=== PATIENT | female | born 1980 | race Caucasian/White ===

== ENCOUNTER 2024-09-25 10:36 | Inpatient (IN) | payer OTHER, SELFPAY ==
[2024-09-23 19:08] VITALS: BP 141/84
--- NOTE | 2024-09-23 19:41 | ED.GENMED ---
History of Present Illness
General
Chief Complaint: Chest Pain
Source: patient
Exam Limitations: none
Time Seen by Provider: 09/23/24 19:28
Nursing documentation reviewed up to this point in time: agreed with
History of Present Illness
History of Present Illness:
43 yo male presents to the emergency department c/o epigastric and chest pain that began at about 6:30 PM.
Past History
Past History
ED Past Medical History: Other (Migraines, heart murmur)
ED Past Surgical History: Other ([place] teeth, breast lumpectomy)
Social History
Tobacco: Non-smoker
Alcohol: Occasional
Drug: None
Personal:
Living: with family
Review of Systems
Review of Systems
Allergies reviewed?: Yes
All Other Systems: Not applicable
Constitutional: Reports no symptoms
EENT: Reports no symptoms
Respiratory: Reports trouble breathing
Cardiac: Reports chest pain
ABD/GI: Reports abdominal pain and nausea
: Reports no symptoms
Musculoskeletal: Reports no symptoms
Skin: Reports no symptoms
Neurological: Reports no symptoms
Endocrine: Reports no symptoms
Hematologic/Lymphatic: Reports no symptoms
Psychiatric: Reports no symptoms
Phy Exam
Physical Exam
Physical Exam:
Physical Exam
General: no apparent distress, not acutely ill
Neck: supple. no meningeal signs. normal posterior pharynx
Heart: s1/s2 regular rate and rhythm, no murmur. equal radial
pulses.
HEENT: Pupils equal round reactive to light, EOMI
Lungs: no acute respiratory distress. clear bilaterally
Abdomen: normal bowel sounds. not tender. no CVAT
Neuro: alert and oriented. no focal neurological deficits cranial nerves II through XII intact
Skin: no rash
Psychiatric: well kept. interactive and cooperative
Extremities: no edema. no calf tenderness. negative homans. good distal pulses
Scores
Heart Score for Chest Pain Patients
STEMI patient?: No
History: Slightly or Non-Suspicious
ECG: Normal
Age: </= 45 years
Risk Factors: No Risk Factors
Troponin: </= Normal Limit
Heart Score for Chest Pain Patients: 0
Heart Score Risk: 2.5% MACE over next 6 weeks
Course
Orders/Labs/Results
Orders:
Orders
09/23/24 19:03
EKG [Electrocardiogram (*1)] Stat
Reason for Study: Chest Pain
EKG- Treatment ONCE
09/23/24 19:29
Cardiac Monitoring- Treatment ONCE
IV Insert/Care/Rem.- Treatment PRN
Pulse Ox/cont/shift [RESP] Stat
Quantity: 1
09/23/24 19:39
US Abdomen Complete/Upper Urgent
Comment:
Reason For Exam: epigastic pain
09/23/24 19:40
Pantoprazole [Protonix IV] 40 mg IV NOW STA
Test Result ONCE
09/23/24 21:00
Pantoprazole [Protonix IV] 40 mg IV NOW STA
09/23/24 21:03
Complete Blood Count/With Diff Urgent
Comprehensive Metabolic Panel Urgent
D-Dimer Urgent
Lipase Urgent
Troponin I Urgent
09/23/24 22:35
Acetaminophen [Tylenol] 650 mg PO NOW STA
09/23/24 22:41
Piperacillin/Tazo 4.5 Gram [Zosyn] 4.5 gram in 100 ml IV NOW
09/23/24 22:48
HCG, Urine Qualitative Screen Urgent
Date Specimen was Collected: 09/23/24
Time Specimen was Collected: 22:42
Urinalysis Reflex To Culture Urgent
Date Specimen was Collected: 09/23/24
Time Specimen was Collected: 22:42
Urine Microscopic Reflex Cult Urgent
Urine Culture Urgent
JOLENE Source: U
Specimen Description:
Date Specimen was Collected: 09/23/24
Time Specimen was Collected: 22:42
09/23/24 23:37
Admit/Transfer Patient As Directed
Co-Sign Provider:
Level of Care: Observation services
Assign to:: Medical/Surgical
Physician / Group: Edilberto/Hospitalist
Diagnosis: possible choledocholithiasis/biliary colic
Reason for Hospitalization: possible choledocholithiasis/biliary colic
PRN Pain Medication Management As Directed
May give lesser potent ordered pain med per pt: Yes
preference::
Protocol:: Medication orders for pain may be administered in a
manner that supports deferring to patient preference
when the pt is:
- Requesting an ordered lesser potent pain medication.
Least to most potent pain medications are defined
as: acetaminophen < NSAID < tramadol < opioids
(morphine, oxycodone, hydromorphone).
- Requesting a lesser dose of the same medication IF
ORDERED.
- Requesting a less intrusive route of administration
if both routes are prescribed by the provider (PO <
IV).
09/23/24 23:38
Code Status As Directed
Resuscitation Status: Full Code
09/24/24 01:09
0.9% Sodium Chloride 1000 ml [Nss] 1,000 ml IV 125 mls/hr
Acetaminophen [Tylenol] 650 mg PO Q4HPRN PRN
Bisacodyl [Dulcolax] 10 mg RECTAL [id number] PRN
Docusate W/Senna [Senokot-S] 1 tablet PO BIDPRN PRN
HYDROmorphone [Dilaudid] 0.5 mg IV Q4HPRN PRN
Ondansetron Injectable [Zofran] 4 mg IV Q6HPRN PRN
Oxycodone [Roxicodone] 5 mg PO Q4HPRN PRN
Polyethylene Glycol Powder [Miralax] 17 grams PO DAILYPRN PRN
09/24/24 01:09
GASTROINTESTINAL CONSULT Routine
Consulting Provider: Anurag Martino
Was physician already notified: Yes
Reason for consult: dilated CBD, RUQ pain, leukocytosis
Activity As Directed
Activity Level: As Tolerated
Pneumatic Compression Sleeves As Directed
Type: Knee high
Vital Signs As Directed
Frequency: Per unit guidelines
Pulse Ox/spot Check [RESP] Routine
Quantity: 1
DX Deep Vein Thrombosis Video Routine
09/24/24 Breakfast
NPO
Allow oral meds: Yes
Allow clear liquids: No
Complete Blood Count/With Diff IN AM
Comprehensive Metabolic Panel IN AM
Piperacillin/Tazo 4.5 Gram [Zosyn] 4.5 gram in 100 ml IV Q8H
Abnormal Lab Results
09/23/24 09/23/24
21:03 22:48
WBC 14.4 H 10^3/uL
(4.8-10.8)
Abs Immat Gran (auto) 0.1 H 10^3/uL
(0-0.05)
Absolute Neuts (auto) 12.1 H 10^3/uL
(1.4-6.5)
Absolute Lymphs (auto) 1.1 L 10^3/uL
(1.2-3.4)
Absolute Monos (auto) 1.0 H 10^3/uL
(0.1-0.6)
Neutrophils % 84.2 H %
(42.2-75.2)
Lymphocytes % 7.7 L %
(20.5-51.1)
Glucose 120 H mg/dl
(70-99)
AST 230 H U/L
(14-36)
ALT 79 H U/L
(0-35)
Urine Urobilinogen 2+ A
(Neg - 1+)
Leukocyte Esterase Rfl Trace A
(Negative)
Urine WBC (Reflex) 11-15 A /HPF
(0-5)
Urine Bacteria (Reflex) Few A
(Negative)
09/23/24 21:03
09/23/24 21:03
Vital Signs
Initial and Last Documented VS:
Initial Vital Signs
Temp Pulse Resp BP Pulse Ox
976 F H 81 26 141/84 100
09/23/24 19:08 09/23/24 19:08 09/23/24 19:08 09/23/24 19:08 09/23/24 19:08
Last Documented Vital Signs
Temp Pulse Resp BP Pulse Ox
98.5 F 76 18 133/83 98
09/24/24 01:13 09/24/24 01:13 09/24/24 01:13 09/24/24 01:13 09/24/24 01:13
MDM/Problems Addressed
Differential Diagnosis Includes:
ND, cholecystitis
MDM/Problems Addressed:
43-year-old female with likely CBD stone. Admit to hospitalist, for likely MRCP and ERCP.
*Radiology
Radiology exam reviewed: radiology read reviewed (Ultrasound shows dilated CBD)
*Pulse Oximetry
Patient hypoxic: no
*EKG
Interpreted by ED Provider?: Yes
EKG Intrepretation Date: 09/23/24
EKG Intrepretation Time: 19:06
Interpretation: normal
Comparison EKG: no comparison EKG present
Heart Rate: 78
Rate: normal
Rhythm: sinus
[place]: normal axis
Interval: normal interval
QRS Pattern: normal QRS
Ischemia: no ischemia
*Denier Control Operator Interpretation
Rate: normal
Interpretation: normal
Heart Rate: 75
Rhythm: sinus
*Critical Care Note
Total Time (30-74mins, 75-104mins- exclusive of procedures): Not Applicable
Data Reviewed
Review of Other/Old Records Reveals: Labs (Prior bilirubin 0.6)
Source: records
Further Testing Considered But Not Given:
CT abdomen pelvis not indicated
Patient Management
Discussion with other providers: Hospitalist
Escalation/DeEscalation of care consider admission/obs:
Admit indicated
ED Attending Note
-
Portions of this chart may have been created with voice recognition software.� Occasional wrong word or��sound alike� substitutions may have occurred due to the inherent limitations of voice recognition software.
Discharge Plan
Departure
Patient Disposition: Admit
Date of Disposition: 09/23/24
Time of Disposition: 22:41
Admit to: Med/Surg
Presentation/result/management discussed w/ accepting MD/DO: Hospitalist
Patient with high blood pressure during this ER visit?: Yes
Condition: Good
Discharge Problem:
Cholelithiasis with choledocholithiasis
Interventions
Interventions:
*Risk Screen - Suicide Last Done: 09/23/24 19:08
*General Assessment Last Done: 09/23/24 19:08
*Neglect/Abuse Screening Last Done: 09/23/24 19:08
ED- Fall Risk Assessment Last Done: 09/23/24 21:16
*ED COVID-19 Vaccine History Last Done: 09/23/24 20:55
*Nursing Disposition Last Done: 09/24/24 01:05
ED- Cardiac Assessment Last Done: 09/23/24 21:16
Discharge Date and Time
Discharge Date/Time: 09/24/24 01:05
[2024-09-23 20:00] VITALS: BP 126/87
[2024-09-23 20:55] VITALS: BMI 25.3
[2024-09-23 21:00] VITALS: BP 128/94
[2024-09-23 21:09] LABS: % Basophils 0.3 % (0-2); % Eosinophils 0.8 % (0-6); % Immature Granulocytes 0.3 % (0-0.5); % Lymphocytes 7.7 % (20.5-51.1); % Monocytes 6.7 % (1.7-9.3); % Neutrophils 84.2 % (42.2-75.2); Absolute Eosinophils 0.1 10^3/uL (0-0.7); Absolute Immature Granulocytes 0.1 10^3/uL (0-0.05); Absolute Lymphocytes 1.1 10^3/uL (1.2-3.4); Absolute Neutrophils 12.1 10^3/uL (1.4-6.5); Hemoglobin 14.6 g/dL (12.0-16.0); Mean Corp Hgb Conc. 36.5 g/dL (33.0-37.0); Mean Corpuscular Hgb 30.5 pg (27.0-31.0); Mean Corpuscular Volume 83.5 fL (81.0-99.0); Mean Platelet Volume 9.8 fL (7.4-10.4); Nucleated Red Blood Cells % 0 %; Platelet Count 240 10^3/uL (130-400); Red Blood Cell Count 4.79 10^6/uL (4.20-5.40); Red Cell Dist. Width 11.8 % (11.5-14.5); White Blood Cell Count 14.4 10^3/uL (4.8-10.8)
[2024-09-23] MEDS: PROTONIX IV 40 MG IV (21:09)
[2024-09-23 21:23] LABS: D-Dimer 0.33 ug/mlFEU (0.00-0.50)
--- NOTE | 2024-09-23 21:23 | EDRN ---
Pt says she was eating candy and did not realize how much she had eaten. Pt developed abdominal pain at 1820 that radiated into her back. Pt noted tingling in both her arms, into her face. Pt concerned she was having a heart attack and had
someone drive her to the ED for evaluation. Pt notes abd pain comes in waves now and is mostly on the R side. Pt adds when the [employer] tech pushed on her gallbladder she had a lot of discomfort. No tingling in arms/face now. Pt drove 4 hours from
[place] yesterday. No leg pain, swelling, urinary symptoms, n/v/d/constipation, dizziness, weakness, fever/chills/cough. Pt denies cp but says she felt like she had indigestion and it was coming up the middle of her chest. Pt did not take any
medications prior to arrival in ED. Last BM this morning.
[2024-09-23 21:32] LABS: ALT (SGPT) 79 U/L (0-35); AST (SGOT) 230 U/L (14-36); Albumin 4.6 g/dl (3.5-5.0); Alkaline Phosphatase 54 U/L (38-126); Blood Urea Nitrogen 14 mg/dl (7-17); Calcium 9.6 mg/dl (8.4-10.2); Carbon Dioxide 28 mmol/L (22-30); Chloride 103 mmol/L (98-107); Estimated Creatinine Clearance 111 ml/min; Glucose 120 mg/dl (70-99); Lipase 68 U/L (23-300); Potassium 3.9 mmol/L (3.5-5.1); Sodium 141 mmol/L (135-145); Total Bilirubin 1.3 mg/dl (0.2-1.3); Total Protein 6.9 g/dl (6.3-8.2); eGFR > 60.00
[2024-09-23 21:42] LABS: Troponin I < 0.012 ng/ml
[2024-09-23 22:00] VITALS: BP 126/93
[2024-09-23] MEDS: TYLENOL 650 MG PO (22:39)
[2024-09-23] MEDS: ZOSYN 100 IV (22:45)
[2024-09-23 22:57] LABS: HCG, Urine Qualitative Screen Negative; Urine Albumin Negative (Neg - Trace); Urine Bilirubin Negative (Negative); Urine Character Slightly Cloudy (Clear); Urine Color Yellow; Urine Glucose Negative (Negative); Urine Ketone Negative (Negative); Urine Leukocyte Trace (Negative); Urine Nitrite Negative (Negative); Urine Occult Blood Negative (Negative); Urine Specific Gravity 1.015 (<1.030); Urine Urobilinogen 2+ (Neg - 1+)
[2024-09-23 23:00] VITALS: BP 125/89
[2024-09-23 23:04] LABS: Urine Squamous Cell 16-20 /LPF (Few)
[2024-09-23 23:05] LABS: Urine Amorphous Seen
[2024-09-23 23:06] LABS: Urine Red Blood Cell 0-2 /HPF (0-2)
--- NOTE | 2024-09-23 23:06 | HPS.HSE ---
Family Physician
-
Family Physician: Zulma Gan
Chief Complaint
-
epigastric and chest pain
History of Present Illness
The patient is a 43 yo woman with PMH significant for migraines and lumpectomy for vascular bundle, who presents to the ED due to onset of severe 9/10 epigastric pain that radiated to her right back and mid-abdomen, associated with possible
hyperventilation, and the sensation of her hands tingling and enlarging bilaterally. She was in so much pain that she was having trouble talking and using her hands, but was able to call her neighbor who drove her to the hospital. She has associated
nausea, no vomiting, no change in mental status. RUQ pain is intermittent. She declines opiates in the ED, and took Tylenol and pain is 7/10 intermittently. No dysuria, no diarrhea, small normal BM this am. Trop is normal in ED, EKG without evidence
for STEMI, NSR.
WBC 14.4.
ED txt:
Tylenol, IV Zosyn, IV PPI
Medical History
Past Medical History
Past Medical History: Reports Other (Migraines, heart murmur )
Past Surgical History: Reports Other (Excisional biopsy/lumpectomy left breast mass, wisdom teeth)
Social History
Tobacco: Non-smoker
Alcohol: Occasional
Drug: None
Personal:
Living: With Family
Family History
Family History: Not pertinent
Allergies / Home Medications
Allergies reflects when Allergies were last updated in [facility].
Home Medications with original date entered in [facility]
Allergy/Medication List:
Allergies
Allergy/AdvReac Type Severity Reaction Status Date / Time
No Known Allergies Allergy Verified 09/23/24 20:57
Home Medications
No Meds [No Current Medications] 09/23/24
Review of Systems
-
A 12 point ROS was completed and negative except as noted: Yes
Physical Exam
Vital Signs
Vital Signs
Temp Pulse Resp BP Pulse Ox
97.7 F 76 48 126/93 97
09/23/24 20:53 09/23/24 22:00 09/23/24 21:00 09/23/24 22:00 09/23/24 22:00
Physical Exam
General: Well Developed, Well Nourished, No Apparent Distress, Comfortable and Conversant
HEENT: NormoCephalic, Anicteric and Moist mucous membranes
Respiratory: Clear
Cardiac: S1/S2 and Regular Rhythm
GI: Soft, Non Distended, Normal Bowel Sounds and Tender (RUQ tenderness, no peritoneal signs)
Musculoskeletal: No Clubbing, No Cyanosis and No Edema
Skin: Warm and Dry
Neuro: AO x 3 and No Motor Deficits
Psych: Calm
Laboratory Results
-
09/23/24 21:03
09/23/24 21:03
Laboratory Results
Total Bilirubin 1.3 mg/dl (0.2-1.3) 09/23/24 21:03
AST 230 U/L (14-36) H 09/23/24 21:03
ALT 79 U/L (0-35) H 09/23/24 21:03
Alkaline Phosphatase 54 U/L (38-126) 09/23/24 21:
Troponin I < 0.012 ng/ml 09/23/24 21:03
Lipase 68 U/L (23-300) 09/23/24 21:03
Data Reviewed
-
Ultrasound: Report Reviewed by me (Tiny gallbladder stones and/or polyps, as noted above. No gallbladder wall thickening or findings to suggest intrahepatic biliary tract dilatation. Negative sonographic Ywnne's sign. Mildly enlarged common bile
duct at 0.9 cm.)
Medical Tests (Nuc Med, Echo, EKG etc): Image Personally Visualized and interpreted (NSR) and Report Reviewed by me
Impression/Plan
-
IMPRESSION: The patient is a 43 yo woman with PMH significant for migraines and lumpectomy for vascular bundle, who presents to the ED due to onset of severe 9/10 epigastric pain that radiated to her right back and mid-abdomen, associated with
possible hyperventilation, and the sensation of her hands tingling and enlarging bilaterally. She was in so much pain that she was having trouble talking and using her hands, but was able to call her neighbor who drove her to the hospital. She has
associated nausea, no vomiting, no change in mental status. RUQ pain is intermittent. She declines opiates in the ED, and took Tylenol and pain is 7/10 intermittently. No dysuria, no diarrhea, small normal BM this am. Trop is normal in ED, EKG
without evidence for STEMI, NSR.
WBC 14.4.
ED txt:
Tylenol, IV Zosyn, IV PPI
#Possible Biliary colic/cholelithiasis with choledocholithiasis
#Leukocytosis
-WBC 14.4
#Transaminitis
AST 230, ALT 79 TBili 1.3
US abdomen: Tiny gallbladder stones and/or polyps, as noted above. No gallbladder wall thickening or findings to suggest intrahepatic biliary tract dilatation. Negative sonographic Wynne's sign. Mildly enlarged common bile duct at 0.9 cm.
Incidental finding-6.7 cm left lobe hepatic cysts with thin internal septations without significant change. Additional smaller simple hepatic cyst measuring 2.7 cm in greatest dimension compared to May 25, 2022
PLAN:
-Admit med/surg
-continue IV Zosyn
-NPO, IVF
-GI consultation placed, possible ERCP vs MRCP awaiting GI recs
-supportive care with pain meds and anti-emetics prn
DVT proph-PCDs
Full Code
[2024-09-23 23:07] LABS: Urine Bacteria Few (Negative); Urine Granular Cast 0-2 /LPF (0)
[2024-09-24 01:13] VITALS: BP 133/83; BMI 24.7
[2024-09-24] MEDS: NSS 1000 IV ×2 (01:54→11:21)
[2024-09-24] MEDS: ROXICODONE 5 MG PO (02:23)
--- NOTE | 2024-09-24 02:51 | PTCARENOTE ---
Receive pt from ER. Pt alert oriented X3, calm and in no distress. Pt assisted to her bed, steady gait. Pt oriented to the room, call sifuentes within reach. Pt states that she has an epigastric pain that radiates at times to the right middle Abd. The
pain is 4/10. Pt denies any SOB, chest pain, or numbness/tingling of her upper extremities. VSS (T=98.5, HR=76, RR=18, NU=730/83, SpO2=98% on RA). IVFs infusing as per order. Oxycodone 5mg given for pain. Will follow.
[2024-09-24] MEDS: ZOSYN 100 IV ×2 (05:26→13:10)
--- NOTE | 2024-09-24 05:57 | CON.GI ---
Consultation
-
Date/Time Consultation Requested: 09/24/24 01:09
Date/Time Consultation Performed: 09/24/24 05:57 AM
Requesting Provider: Dr. Dotty Diaz
Performing Provider: Dr. Anurag Martino
Reason for Consultation: Biliary Ductal Dilation on US, c/f choledocholithiasis
Medical History
Chief Complaint / HPI
Chief Complaint: Epigastric and chest pain
History of Present Illness:
Ms. Acosta is a 43 y.o female with past medical history of migraines and lumpectomy (L breast mass) who presented to the ED with acute epigastric pain and chest discomfort.
Patient states her symptoms started yesterday afternoon about two hours after eating dinner. Developed acute, sharp epigastric pain which wrapped around her RUQ. Initially felt better but then continued to progress in waves with more intensity.
Denies any prior symptoms like this in the past. Though at first it may have been the candies she ate [facility] not [facility]. Denies any nausea or vomiting. No other fevers, chills, night sweats or other constitutional
symptoms. She denies any prior chronic abdominal pain or prior EGD or colonoscopy. However, she does note her son was diagnosed with Juvenile polyposis syndrome (at 4 y.o). Given her worsening abdominal pain she came to the ED for further
evaluation. Otherwise, denies any NSAIDs or significant EtOH use.
In the ED, she was afebrile and HD-stable. Troponin wnl and EKG without evidence fo STEMI along with D-dimer 0.33. Labs notable for BUN 14 and [employer] 0.6. LFTs with AST 230, ALT 79, ALP 54, and T Bili 1.3. Of note prior LFTs, 06/08/2023 were wnl (except
mildly low ALP 37). Lipase 68. CBC with WBC 14.4, Hgb 14.6 and plts 240. Abd US 09/23/24 revealed tiny gallbladder stones and/or polyps without gallbladder wall thickening or findings to suggest intrahepatic biliary tract dilation and (-) Wynne's
sign. Mildly enlarged CBD at 0.9 cm. Additionally, incidental left lobe hepatic cysts with internal septations without significant change (measuring 6.7 and 2.7 cm).
She was started on IV Zosyn and admitted to medicine. Gastroenterology has been consulted for further evaluation given concern for choledocholithiasis.
Past Medical History
Past Medical History: Other (Migraines, heart murmur)
Past Surgical History: Other (Excisional biopsy/lumpectomy left breast mass, wisdom teeth)
Social History
Tobacco: Non-Smoker
Alcohol: Occasional
Drug: None
Family History
Family History: Other (Son with juvenile polyposis syndrome, admits her personal genetic testing was negative)
Allergies / Home Medications
Allergy/AdvReac Type Severity Reaction Status Date / Time
No Known Allergies Allergy Verified 09/23/24 20:57
�Medication �Instructions �Recorded
No Meds [No Current Medications] 09/23/24
Review of Systems
-
All other systems: A 12 pt ROS was Negative except as stated above in HPI
Vital Signs
Temp Pulse Resp BP Pulse Ox
98.5 F 76 18 133/83 98
09/24/24 01:13 09/24/24 01:13 09/24/24 01:13 09/24/24 01:13 09/24/24 02:20
Physical Exam
Exam
General: Well Developed, Well Nourished and Comfortable
HEENT: Normocephalic and Anicteric
Respiratory: Clear
Cardiac: S1/S2 and Regular Rhythm
GI: Soft, Non Distended and Tender (Tender in epigastric region)
Skin: Warm
Neuro: AO x 3
Hematologic/Lymphatic: No Lymphadenopathy
Psych: Calm
Results
WBC 14.4 10^3/uL (4.8-10.8) H 09/23/24 21:03
Hgb 14.6 g/dL (12.0-16.0) 09/23/24 21:03
Hct 40.0 % (37.0-47.0) 09/23/24 21:
MCV 83.5 fL (81.0-99.0) 09/23/24 21:
Plt Count 240 10^3/uL (130-400) 09/23/24 21:03
Absolute Neuts (auto) 12.1 10^3/uL (1.4-6.5) H 09/23/24 21:03
Sodium 141 mmol/L (135-145) 09/23/24 21:
Potassium 3.9 mmol/L (3.5-5.1) 09/23/24 21:
Chloride 103 mmol/L (98-107) 09/23/24 21:
Carbon Dioxide 28 mmol/L (22-30) 09/23/24 21:
BUN 14 mg/dl (7-17) 09/23/24 21:
Creatinine 0.6 mg/dL (0.6-1.0) 09/23/24 21:
Calcium 9.6 mg/dl (8.4-10.2) 09/23/24 21:
Total Bilirubin 1.3 mg/dl (0.2-1.3) 09/23/24 21:
AST 230 U/L (14-36) H 09/23/24 21:
ALT 79 U/L (0-35) H 09/23/24 21:
Alkaline Phosphatase 54 U/L (38-126) 09/23/24 21:
Lipase 68 U/L (23-300) 09/23/24 21:03
Diagnostic Image Results:
Prior GI Procedures: No prior EGD or Colonoscopy
Assessment / Plan
-
#Epigastric Abdominal Pain suspicious for #Biliary Colic
#Biliary Ductal Dilation
#Elevated LFTs
#Hepatic Cysts
Ms. Acosta is a 43 y.o female with past medical history of migraines and lumpectomy (L breast mass) who presented to the ED with acute epigastric pain most consistent with biliary colic with new biliary ductal dilatation with CBD 0.9 and
cholelithiasis (vs polyps) along with hepatic cysts. Otherwise, no concern for cholangitis or biliary sepsis given her presentation. Most suspicious for retained small stone versus sludge given her biliary-type discomfort and biliary dilation on US.
MRI/MRCP (-) for choledocholithiasis with CBD 6 mm, however with mild intrahepatic biliary ductal dilation within the L hepatic lobe. Concern for possible mass effect versus focal stricture (less likely).
Repeat LFTs markedly elevated with AST 230 -> 1101, ALT 79 -> 733, ALP 54 -> 60, and T Bili 1.3 -> 1.5. Transaminases out-of proportion as usually biliary obstruction does not cause this degree of elevations in transaminases. Denies any Tylenol
ingestion or EtOH use and without any episodes of hypotension and patent vasculature on prior imaging.
Recommendations:
- Okay for CLD today
- Repeat LFTs and INR this afternoon
- Stop IV Zosyn as without concern for biliary sepsis and/or cholangitis
- Obtain acute viral hepatitis serologies for completion
- Given her symptoms, still very suspicious for passed stone and/or sludge. Unclear if this truly related to the cyst and would likely benefit from EUS for further evaluation of biliary tree and cyst given intrahepatic dilation
- Will d/w with Dr. Martins regarding pursuing EUS +/- ERCP
- Rest of care per primary team
#Family Hx of Juvenile Polyposis Syndrome
Reports her son was diagnosed with juvenile polyposis syndrome at 4 y.o. She underwent genetic testing which was negative, however has never had a prior EGD or colonoscopy
- Will need colonoscopy as outpatient and will need to review prior genetic testing
- Rest of care as outlined above
GI will continue to follow.
Data Reviewed
-
Radiology: Image Personally Visualized and interpreted and Report Reviewed by me
Ultrasound: Image Personally Visualized and interpreted and Report Reviewed by me
MRI: Image Personally Visualized and interpreted and Report Reviewed by me
-
-
Thank you for consultation and allowing me to participate in the patient's care. Please call the international accounting manager GI physician during the after hours with any questions or concerns.
[2024-09-24 07:30] VITALS: BP 116/76
[2024-09-24] MEDS: ZOFRAN 4 MG IV ×3 (07:30→21:59)
[2024-09-24 08:29] LABS: % Basophils 0.5 % (0-2); % Eosinophils 2.5 % (0-6); % Immature Granulocytes 0.2 % (0-0.5); % Lymphocytes 15.6 % (20.5-51.1); % Monocytes 8.5 % (1.7-9.3); % Neutrophils 72.7 % (42.2-75.2); Absolute Eosinophils 0.1 10^3/uL (0-0.7); Absolute Lymphocytes 0.7 10^3/uL (1.2-3.4); Absolute Monocytes 0.4 10^3/uL (0.1-0.6); Absolute Neutrophils 3.2 10^3/uL (1.4-6.5); Hematocrit 37.1 % (37.0-47.0); Hemoglobin 13.2 g/dL (12.0-16.0); Mean Corp Hgb Conc. 35.6 g/dL (33.0-37.0); Mean Corpuscular Hgb 30.1 pg (27.0-31.0); Mean Corpuscular Volume 84.5 fL (81.0-99.0); Mean Platelet Volume 10.1 fL (7.4-10.4); Nucleated Red Blood Cells % 0 %; Platelet Count 202 10^3/uL (130-400); Red Blood Cell Count 4.39 10^6/uL (4.20-5.40); Red Cell Dist. Width 11.9 % (11.5-14.5); White Blood Cell Count 4.4 10^3/uL (4.8-10.8)
[2024-09-24 09:30] LABS: ALT (SGPT) 733 U/L (0-35); Albumin 3.6 g/dl (3.5-5.0); Alkaline Phosphatase 60 U/L (38-126); Blood Urea Nitrogen 9 mg/dl (7-17); Calcium 8.5 mg/dl (8.4-10.2); Carbon Dioxide 23 mmol/L (22-30); Chloride 108 mmol/L (98-107); Estimated Creatinine Clearance 111 ml/min; Glucose 99 mg/dl (70-99); Potassium 3.9 mmol/L (3.5-5.1); Sodium 140 mmol/L (135-145); Total Bilirubin 1.5 mg/dl (0.2-1.3); Total Protein 5.8 g/dl (6.3-8.2); eGFR > 60.00
[2024-09-24 09:36] LABS: AST (SGOT) 1101 U/L (14-36)
--- NOTE | 2024-09-24 11:42 | W.PN.HOSP.TC ---
Today's Communication/Plan
-
await MRCP
GI recs
IVF
Assessment / Plan
Assessment / Plan
IMPRESSION: The patient is a 43 yo woman with PMH significant for migraines and lumpectomy for vascular bundle, who presents to the ED due to onset of severe 9/10 epigastric pain that radiated to her right back and mid-abdomen, associated with
possible hyperventilation, and the sensation of her hands tingling and enlarging bilaterally. She was in so much pain that she was having trouble talking and using her hands, but was able to call her neighbor who drove her to the hospital. She has
associated nausea, no vomiting, no change in mental status. RUQ pain is intermittent. She declines opiates in the ED, and took Tylenol and pain is 7/10 intermittently. US abdomen done on admission showing Tiny gallbladder stones and/or polyps, as
noted above. No gallbladder wall thickening or findings to suggest intrahepatic biliary tract dilatation. Negative sonographic Wynne's sign. Mildly enlarged common bile duct at 0.9 cm.
Incidental finding-6.7 cm left lobe hepatic cysts with thin internal septations without significant change. Additional smaller simple hepatic cyst measuring 2.7 cm in greatest dimension compared to May 25, 2022
#Possible Biliary colic/cholelithiasis with choledocholithiasis/cholestasis
#Leukocytosis
#Transaminitis
-continue IV Zosyn
-NPO, IVF
-Bump in AST/ALT noted. Trend LFTs
-supportive care with pain meds and anti-emetics prn
-MRCP pending
-GI following
DVT proph-scds
Full Code
Anticipated Discharge: 24 - 48 hours
Subjective/Interval History
-
Date of Service: September 24, 2024
States of epigastric and RUQ abd pain
intermittent nausea
Objective Data
-
Labs:
Laboratory Results
09/24/24
08:06
WBC 4.4 L
Hgb 13.2
Hct 37.1
Plt Count 202
Sodium 140
Potassium 3.9
Chloride 108 H
Carbon Dioxide 23
BUN 9
Creatinine 0.6
Glucose 99
Calcium 8.5
Total Bilirubin 1.5 H
AST 1101 H*
ALT 733 H*
Alkaline Phosphatase 60
Vital Signs:
Vital Signs
Temp Pulse Resp BP Pulse Ox
98.5 F 69 16 116/76 98
09/24/24 07:30 09/24/24 07:30 09/24/24 07:30 09/24/24 07:30 09/24/24 07:30
I&O
09/23/24 09/24/24 09/25/24
06:59 06:59 06:59
Intake Total 536 / 536
Balance 536 / 536
Physical Exam
-
General: Well Developed and No Apparent Distress
HEENT: Normocephalic, Atraumatic and Moist Mucous Membranes
Respiratory: Clear to Auscultation
Cardiac: Regular Rhythm and S1/S2; Negative Murmur, Rub or Gallop
GI: Soft, Nondistended, Normal Bowel Sounds and Tender; Negative Organomegaly
Rectal: Deferred by Provider
Musculoskeletal: No Clubbing, No Cyanosis and No Edema
Skin: Negative Rash
Neuro: Awake, Alert, Oriented, AO x 3, No Motor Deficits and Nonfocal/Grossly Intact
Psych: Calm
--- NOTE | 2024-09-24 11:58 | CM ---
Addendum entered by Amrita Kenney 09/24/24 12:04:
PCP: Dr. Zulma Gan
Pharmacy: [facility]
Insurance, contacts and address verified
Original Note:
Pt seen bedside. Pt lives w/ spouse in a [facility]- 13 steps to enter.
Independent, no DME use for daily functioning.
Denies SNF hx
Denies VN/PT hx
Denies financial insecurities
OOBS form explained, pt given copy. Copy placed in chart
Plan: Home no needs anticipated
CM will cont. to follow for d/c needs
[2024-09-24 15:12] VITALS: BP 125/78
[2024-09-24 15:51] LABS: % Basophils 0.5 % (0-2); % Eosinophils 2.3 % (0-6); % Immature Granulocytes 0.5 % (0-0.5); % Monocytes 5.7 % (1.7-9.3); Absolute Eosinophils 0.1 10^3/uL (0-0.7); Absolute Lymphocytes 0.5 10^3/uL (1.2-3.4); Absolute Monocytes 0.3 10^3/uL (0.1-0.6); Absolute Neutrophils 3.5 10^3/uL (1.4-6.5); Hematocrit 38.9 % (37.0-47.0); Hemoglobin 13.7 g/dL (12.0-16.0); Mean Corp Hgb Conc. 35.2 g/dL (33.0-37.0); Mean Corpuscular Hgb 30.2 pg (27.0-31.0); Mean Corpuscular Volume 85.7 fL (81.0-99.0); Mean Platelet Volume 9.6 fL (7.4-10.4); Nucleated Red Blood Cells % 0 %; Platelet Count 203 10^3/uL (130-400); Red Blood Cell Count 4.54 10^6/uL (4.20-5.40); White Blood Cell Count 4.4 10^3/uL (4.8-10.8)
[2024-09-24 16:04] LABS: INR 1.08; PT 13.9 Sec (11.4-14.6)
[2024-09-24 16:06] LABS: ALT (SGPT) 630 U/L (0-35); AST (SGOT) 586 U/L (14-36); Albumin 3.6 g/dl (3.5-5.0); Alkaline Phosphatase 68 U/L (38-126); Blood Urea Nitrogen 8 mg/dl (7-17); Calcium 8.1 mg/dl (8.4-10.2); Carbon Dioxide 22 mmol/L (22-30); Chloride 109 mmol/L (98-107); Estimated Creatinine Clearance 111 ml/min; Glucose 97 mg/dl (70-99); Potassium 4.1 mmol/L (3.5-5.1); Sodium 140 mmol/L (135-145); Total Bilirubin 1.4 mg/dl (0.2-1.3); eGFR > 60.00
[2024-09-24 18:44] LABS: Hepatitis B Surface Antigen Negative (Negative)
[2024-09-24 19:01] LABS: Hepatitis B Core Ab, Total Negative (Negative); Hepatitis B Surface Antibody Negative; Hepatitis C Antibody Negative (Negative)
[2024-09-24 19:12] LABS: Hepatitis A Antibody, Total Negative (Negative)
[2024-09-24 23:23] VITALS: BP 113/70
--- NOTE | 2024-09-25 05:41 | W.PN.GI.CBS2 ---
Today's Communication / Plan
-
See previous progress note dated from 09/25/2024.
Assessment / Plan
-
#Epigastric Abdominal Pain suspicious for #Biliary Colic
#Biliary Ductal Dilation
#Elevated LFTs
#Hepatic Cysts
Ms. Acosta is a 43 y.o female with past medical history of migraines and lumpectomy (L breast mass) who presented to the ED with acute epigastric pain most consistent with biliary colic with new biliary ductal dilatation with CBD 0.9 and
cholelithiasis (vs polyps) along with hepatic cysts. Otherwise, no concern for cholangitis or biliary sepsis given her presentation. Most suspicious for retained small stone versus sludge given her biliary-type discomfort and biliary dilation on US.
MRI/MRCP (-) for choledocholithiasis with CBD 6 mm, however with mild intrahepatic biliary ductal dilation within the L hepatic lobe. Concern for possible mass effect versus focal stricture (less likely).
Repeat LFTs markedly elevated with AST 230 -> 1101, ALT 79 -> 733, ALP 54 -> 60, and T Bili 1.3 -> 1.5. Transaminases out-of proportion as usually biliary obstruction does not cause this degree of elevations in transaminases. Denies any Tylenol
ingestion or EtOH use and without any episodes of hypotension and patent vasculature on prior imaging.
Recommendations:
- Okay for CLD today
- Repeat LFTs and INR this afternoon
- Stop IV Zosyn as without concern for biliary sepsis and/or cholangitis
- Obtain acute viral hepatitis serologies for completion
- Given her symptoms, still very suspicious for passed stone and/or sludge. Unclear if this truly related to the cyst and would likely benefit from EUS for further evaluation of biliary tree and cyst given intrahepatic dilation
- Will d/w with Dr. Martins regarding pursuing EUS +/- ERCP
- Rest of care per primary team
#Family Hx of Juvenile Polyposis Syndrome
Reports her son was diagnosed with juvenile polyposis syndrome at 4 y.o. She underwent genetic testing which was negative, however has never had a prior EGD or colonoscopy
- Will need colonoscopy as outpatient and will need to review prior genetic testing
- Rest of care as outlined above
GI will continue to follow.
Objective
Data Reviewed
Laboratory Data:
Laboratory Results
PT 13.9 Sec (11.4-14.6) 09/24/24 15:40
INR 1.08 09/24/24 15:40
Total Bilirubin 1.4 mg/dl (0.2-1.3) H 09/24/24 15:40
AST 586 U/L (14-36) H* 09/24/24 15:40
ALT 630 U/L (0-35) H* 09/24/24 15:40
Alkaline Phosphatase 68 U/L (38-126) 09/24/24 15:40
Lipase 68 U/L (23-300) 09/23/24 21:03
Vital Signs and I&O:
Vital Signs
Temp Pulse Resp BP Pulse Ox
99.4 F 86 18 113/70 96
09/24/24 23:23 09/24/24 23:23 09/24/24 23:23 09/24/24 23:23 09/24/24 23:23
I&O
09/23/24 09/24/24 09/25/24
06:59 06:59 06:59
Intake Total 536 / 536 880 / 880
Balance 536 / 536 880 / 880
[2024-09-25 07:35] VITALS: BP 122/82
[2024-09-25 08:06] LABS: % Basophils 0.8 % (0-2); % Eosinophils 5.6 % (0-6); % Immature Granulocytes 0.3 % (0-0.5); % Monocytes 8.5 % (1.7-9.3); % Neutrophils 64.8 % (42.2-75.2); Absolute Eosinophils 0.2 10^3/uL (0-0.7); Absolute Lymphocytes 0.8 10^3/uL (1.2-3.4); Absolute Monocytes 0.3 10^3/uL (0.1-0.6); Absolute Neutrophils 2.5 10^3/uL (1.4-6.5); Hematocrit 40.3 % (37.0-47.0); Hemoglobin 13.7 g/dL (12.0-16.0); Mean Corpuscular Hgb 29.3 pg (27.0-31.0); Mean Corpuscular Volume 86.3 fL (81.0-99.0); Nucleated Red Blood Cells % 0 %; Platelet Count 199 10^3/uL (130-400); Red Blood Cell Count 4.67 10^6/uL (4.20-5.40); Red Cell Dist. Width 12.1 % (11.5-14.5); White Blood Cell Count 3.9 10^3/uL (4.8-10.8)
[2024-09-25 08:40] LABS: ALT (SGPT) 458 U/L (0-35); AST (SGOT) 252 U/L (14-36); Albumin 3.6 g/dl (3.5-5.0); Alkaline Phosphatase 63 U/L (38-126); Blood Urea Nitrogen 6 mg/dl (7-17); Calcium 8.4 mg/dl (8.4-10.2); Carbon Dioxide 24 mmol/L (22-30); Chloride 107 mmol/L (98-107); Estimated Creatinine Clearance 111 ml/min; Glucose 87 mg/dl (70-99); Potassium 3.9 mmol/L (3.5-5.1); Sodium 141 mmol/L (135-145); Total Bilirubin 0.8 mg/dl (0.2-1.3); Total Protein 5.8 g/dl (6.3-8.2); eGFR > 60.00
[2024-09-25 09:07] LABS: Hepatitis A IgM Antibody Negative (Negative); Hepatitis B Core Ab, IgM Negative (Negative)
--- NOTE | 2024-09-25 11:25 | W.PN.HOSP.TC ---
Today's Communication/Plan
-
Hold further IVF
Trend LFTs
Clears
Gi recs
Assessment / Plan
Assessment / Plan
IMPRESSION: The patient is a 43 yo woman with PMH significant for migraines and lumpectomy for vascular bundle, who presents to the ED due to onset of severe 9/10 epigastric pain that radiated to her right back and mid-abdomen, associated with
possible hyperventilation, and the sensation of her hands tingling and enlarging bilaterally. She was in so much pain that she was having trouble talking and using her hands, but was able to call her neighbor who drove her to the hospital. She has
associated nausea, no vomiting, no change in mental status. RUQ pain is intermittent. She declines opiates in the ED, and took Tylenol and pain is 7/10 intermittently. US abdomen done on admission showing Tiny gallbladder stones and/or polyps, as
noted above. No gallbladder wall thickening or findings to suggest intrahepatic biliary tract dilatation. Negative sonographic Wynne's sign. Mildly enlarged common bile duct at 0.9 cm.
Incidental finding-6.7 cm left lobe hepatic cysts with thin internal septations without significant change. Additional smaller simple hepatic cyst measuring 2.7 cm in greatest dimension compared to May 25, 2022 MRCP finding includes There is no
evidence of choledocholithiasis. The common bile duct measures 6 mm. There is mild intrahepatic biliary ductal dilation within the left hepatic lobe which may be secondary to mass effect from the adjacent prominent hepatic cyst, less likely
secondary to focal stricture. The gallbladder is nondistended. There is apparent trace pericholecystic fluid which is nonspecific. Numerous scattered hepatic cysts which measure up to 6.1 cm in the left hepatic lobe, similar in appearance to prior.
There are likely 2 hemangiomas within the right hepatic lobe which measure up to 1.2 cm.
#Possible Biliary sludge/cholestasis/?lesion-however not noted on MRCP
#Leukocytosis
#Transaminitis
-Improvement in LFTs. INR 1.08. T. bili down trended to normal.
-Hepatitis panel negative.
-Discussed with gastroenterology not concern for cholangitis and antibiotics discontinued.
-supportive care with pain meds and anti-emetics prn
-MRCP finding above
-Started on clears. ADAT.
-GI following
DVT proph-scds
Full Code
Anticipated Discharge: Within 24 hours
Subjective/Interval History
-
Date of Service: September 25, 2024
states improvement in abd pain
Objective Data
-
Labs:
Laboratory Results
09/25/24
07:25
WBC 3.9 L
Hgb 13.7
Hct 40.3
Plt Count 199
Sodium 141
Potassium 3.9
Chloride 107
Carbon Dioxide 24
BUN 6 L
Creatinine 0.6
Glucose 87
Calcium 8.4
Total Bilirubin 0.8
AST 252 H
ALT 458 H
Alkaline Phosphatase 63
Vital Signs:
Vital Signs
Temp Pulse Resp BP Pulse Ox
98.3 F 67 18 122/82 96
09/25/24 07:35 09/25/24 07:35 09/25/24 07:35 09/25/24 07:35 09/25/24 07:35
I&O
09/24/24 09/25/24 09/26/24
06:59 06:59 06:59
Intake Total 536 / 536 1360 / 1360
Balance 536 / 536 1360 / 1360
Physical Exam
-
General: Well Developed and No Apparent Distress
HEENT: Normocephalic, Atraumatic and Moist Mucous Membranes
Respiratory: Clear to Auscultation
Cardiac: Regular Rhythm and S1/S2; Negative Murmur, Rub or Gallop
GI: Soft, Nondistended, Normal Bowel Sounds and Tender; Negative Organomegaly
Rectal: Deferred by Provider
Musculoskeletal: No Clubbing, No Cyanosis and No Edema
Skin: Negative Rash
Neuro: Awake, Alert, Oriented, AO x 3, No Motor Deficits and Nonfocal/Grossly Intact
Psych: Calm
--- NOTE | 2024-09-25 12:13 | W.PN.GI.CBS2 ---
Addendum entered and electronically signed by Anurag Martino DO 09/25/24 13:44:
I saw and examined the patient.
The TEXTILE EXAMINER's note was reviewed and I agree with the note.
Comment: D/w with Dr. Martins yesterday evening and plan to hold off on further EUS while inpatient. Would consider outpatient evaluation given concern for possible cyst compression seen on recent MRI/MRCP. Recommend ongoing w/u as detailed below and if
able to tolerate diet later today recommend ongoing outpatient f/u with me in September. If LFTs still elevated then would pursue full serologic w/u of chronic liver disease. Discussed with patient at length this AM and coordinate f/u as detailed
below.
Original Note:
Today's Communication / Plan
-
as per plan
Assessment / Plan
-
#Epigastric Abdominal Pain suspicious for #Biliary Colic
#Biliary Ductal Dilation
#Elevated LFTs
#Hepatic Cysts
Ms. Acosta is a 43 y.o female with past medical history of migraines and lumpectomy (L breast mass) who presented to the ED with acute epigastric pain most consistent with biliary colic with new biliary ductal dilatation with CBD 0.9 and
cholelithiasis (vs polyps) along with hepatic cysts. Otherwise, no concern for cholangitis or biliary sepsis given her presentation. Most suspicious for retained small stone versus sludge given her biliary-type discomfort and biliary dilation on US.
MRI/MRCP (-) for choledocholithiasis with CBD 6 mm, however with mild intrahepatic biliary ductal dilation within the L hepatic lobe. Concern for possible mass effect versus focal stricture (less likely).
Repeat LFTs markedly elevated with AST 230 -> 1101, ALT 79 -> 733, ALP 54 -> 60, and T Bili 1.3 -> 1.5. Transaminases out-of proportion as usually biliary obstruction does not cause this degree of elevations in transaminases. Denies any Tylenol
ingestion or EtOH use and without any episodes of hypotension and patent vasculature on prior imaging.
Recommendations:
- Advance to low fat diet
- Preserved PLT and INR
- Negative Hepatitis panel. Discussed with patient recommend Hepatitis A and B vaccines.
- Given her symptoms, still very suspicious for passed stone and/or sludge. Unclear if this truly related to the cyst and would likely benefit from EUS for further evaluation of biliary tree and cyst given intrahepatic dilation
- Will d/w with Dr. Martins regarding pursuing EUS +/- ERCP
- Will need follow up LFTs in 1 week
-Will give lab slip for KAYDEN, AMA, ASMA, alpha 1 AT, anti LKM1ab, ceruloplasmin, celiac panel, Immunoglobulins
-Follow up appt made for Dr. Martino on 10/17/24 at 9:30 am
- Rest of care per primary team
#Family Hx of Juvenile Polyposis Syndrome
Reports her son was diagnosed with juvenile polyposis syndrome at 4 y.o. She underwent genetic testing which was negative, however has never had a prior EGD or colonoscopy
- Will need colonoscopy as outpatient and will need to review prior genetic testing
- Rest of care as outlined above
GI will continue to follow.
Subjective
Subjective
Date of Service: September 25, 2024
Patient with improving LFTs. PLT and INR preserved. No abdominal pain. Some mild nausea with vegetable broth.
Objective
Data Reviewed
Laboratory Data:
Laboratory Results
09/25/24 07:25
09/25/24 07:25
Laboratory Results
PT 13.9 Sec (11.4-14.6) 09/24/24 15:40
INR 1.08 09/24/24 15:40
Total Bilirubin 0.8 mg/dl (0.2-1.3) 09/25/24 07:25
AST 252 U/L (14-36) H 09/25/24 07:25
ALT 458 U/L (0-35) H 09/25/24 07:25
Alkaline Phosphatase 63 U/L (38-126) 09/25/24 07:25
Lipase 68 U/L (23-300) 09/23/24 21:03
Vital Signs and I&O:
Vital Signs
Temp Pulse Resp BP Pulse Ox
98.3 F 67 18 122/82 96
09/25/24 07:35 09/25/24 07:35 09/25/24 07:35 09/25/24 07:35 09/25/24 07:35
I&O
09/24/24 09/25/24 09/26/24
06:59 06:59 06:59
Intake Total 536 / 536 1360 / 1360
Balance 536 / 536 1360 / 1360
Physical Exam
Physical Exam
HEENT: Anicteric
Cardiology: Normal Sinus Rhythm
Pulmonary: Clear
GI: Soft, Non Distended, Non Tender and Normal Bowel Sounds
Extremities: No Edema
Neuro: Non Focal
--- NOTE | 2024-09-25 14:11 | W.DCSUMMARY ---
Discharge Summary
Discharge Data
Date of Admission: 09/25/24
Date of Discharge: 09/25/24
-
Pending Results: No
Hospital Course
Patient is a 43 yo woman with PMH significant for migraines and lumpectomy . who presents to the ED due to onset of severe 9/10 epigastric pain that radiated to her right back and mid-abdomen, associated with possible hyperventilation, and the
sensation of her hands tingling and enlarging bilaterally. She was in so much pain that she was having trouble talking and using her hands, but was able to call her neighbor who drove her to the hospital. She has associated nausea, no vomiting, no
change in mental status. RUQ pain is intermittent. She declines opiates in the ED, and took Tylenol and pain is 7/10 intermittently. US abdomen done on admission showing Tiny gallbladder stones and/or polyps, as noted above. No gallbladder wall
thickening or findings to suggest intrahepatic biliary tract dilatation. Negative sonographic Wynne's sign. Mildly enlarged common bile duct at 0.9 cm. Incidental finding-6.7 cm left lobe hepatic cysts with thin internal septations without
significant change. Additional smaller simple hepatic cyst measuring 2.7 cm in greatest dimension compared to May 25, 2022. Patient with significant jump in transaminitis which eventually down trended. Patient significant improvement in pain.
Patient was able to tolerate liquids and his diet was advanced. Underwent MRCP finding includes There is no evidence of choledocholithiasis. The common bile duct measures 6 mm. There is mild intrahepatic biliary ductal dilation within the left
hepatic lobe which may be secondary to mass effect from the adjacent prominent hepatic cyst, less likely secondary to focal stricture. The gallbladder is nondistended. There is apparent trace pericholecystic fluid which is nonspecific. Numerous
scattered hepatic cysts which measure up to 6.1 cm in the left hepatic lobe, similar in appearance to prior. There are likely 2 hemangiomas within the right hepatic lobe which measure up to 1.2 cm. Hepatitis acute panel was negative. Patient will
underwent outpatient autoimmune workup and GI provided lab slip for serologies. Patient was able to tolerate low-fat diet. Per discussion with Dr. Martino gastroenterology patient can be discharged with outpatient follow-up for blood work.
Discharge Plan
-
Patient Disposition: Home (Routine Discharge)
Discharge Diagnosis/Procedures: Transaminitis
Condition: Fair
Diet: Low Fat
Activity: With assistance and As tolerated
Driving Restrictions: As prior to admission
Blood Work: CMP in 3-5 days via GI or primary doctor.
Referrals:
Zulma Gan DO [Family Provider] -
Anurag Martino DO [Active] - None (call to make appt-lab slip provided to you by GI for bloodwork)
Prescriptions:
No Action
No Current Medications
0
Discharge Date and Time
Print Language: BELARUSIAN
[2024-09-25 15:17] VITALS: BP 128/88
== END 2024-09-25 17:13 | disposition home or self-care (01) | DRG 446 ==
LOC: 4 EAST ACU 10:36
PROVIDERS: ADMITTING PHYSICIAN Internal Medicine; ATTENDING PHYSICIAN Hospitalist; CONSULT PHYSICIAN Student in an Organized Health Care Education/Training Program; EMERGENCY PHYSICIAN Emergency Medicine; FAMILY PHYSICIAN Family Medicine
DX: K83.1 Obstruction of bile duct (principal); K83.8 Other specified diseases of biliary tract; K76.89 Other specified diseases of liver; D18.09 Hemangioma of other sites; D72.829 Elevated white blood cell count, unspecified; R20.2 Paresthesia of skin; R03.0 Elevated blood-pressure reading, without diagnosis of hypertension; R10.13 Epigastric pain; R07.89 Other chest pain; R79.89 Other specified abnormal findings of blood chemistry; G43.909 Migraine, unspecified, not intractable, without status migrainosus
CPT/HCPCS: 74183; 76700; 80053; 81003; 81015; 81025; 83690; 84484; 85025; 85379; 85610; 86704; 86705; 86706; 86708; 86709; 86803; 87086; 87340; 93005; 96365; 96375; 99285; A9575

== ENCOUNTER 2024-12-04 06:25 | Day surgery (SDC) | payer OTHER, SELFPAY ==
[2024-12-04 11:06] VITALS: BMI 23.8
[2024-12-04 11:07] VITALS: BP 112/74
[2024-12-04 14:12] VITALS: BP 118/78
[2024-12-04 14:15] VITALS: BP 113/78
[2024-12-04 14:30] VITALS: BP 113/83
[2024-12-04 14:39] VITALS: BP 114/82
== END 2024-12-04 14:45 | disposition home or self-care (01) ==
LOC: SDS 06:25
PROVIDERS: ATTENDING PHYSICIAN Internal Medicine Gastroenterology
PROC: BD47ZZZ Ultrasonography of Gastrointestinal Tract (ICD-10-PCS; 2024-12-04)
PROC: 0DB68ZX Excision of Stomach, Via Natural or Artificial Opening Endoscopic, Diagnostic (ICD-10-PCS; 2024-12-04)
PROC: 0DB98ZX Excision of Duodenum, Via Natural or Artificial Opening Endoscopic, Diagnostic (ICD-10-PCS; 2024-12-04)
DX: K83.8 Other specified diseases of biliary tract (principal); K52.9 Noninfective gastroenteritis and colitis, unspecified; K76.9 Liver disease, unspecified
CPT/HCPCS: 43238; 88305

== ENCOUNTER → 2025-03-13 19:33 | Outpatient (REF) | payer OTHER, SELFPAY | LOC: PAVMRI 19:33 | PROVIDERS: ATTENDING PHYSICIAN Transplant Surgery; FAMILY PHYSICIAN Family Medicine | DX: K76.9 Liver disease, unspecified (principal) | CPT/HCPCS: 74183; A9581 ==